=== PATIENT | female | born 1995 | race Caucasian/White ===

== ENCOUNTER → 2022-03-02 | Outpatient (CLI) | payer OTHER ==
[2022-03-02 18:05] LABS: BASO % 0.1 % (0.0-1.0); EOS # 0.1 10^3/uL (0.0-0.5); EOS % 1.5 % (0.0-3.0); HEMATOCRIT 33.9 % (36.0-47.0); HEMOGLOBIN 11.1 g/dl (12.0-15.5); LYMPH # 1.3 10^3/uL (1.5-5.0); LYMPH % 16.7 % (24.0-44.0); MEAN CORPUSCULAR HGB CONC 32.7 g/dl (32.0-36.5); MEAN CORPUSCULAR VOLUME 88.5 fl (80.0-96.0); MONO # 0.6 10^3/uL (0.0-0.8); MONO % 7.4 % (2.0-8.0); NEUTROPHILS # 5.9 10^3/uL (1.5-8.5); NEUTROPHILS % 73.8 % (36.0-66.0); PLATELET COUNT, AUTOMATED 336 10^3/uL (150-450); RED BLOOD COUNT 3.83 10^6/uL (4.00-5.40)
[2022-03-02 20:01] LABS: HIV 1&2 SCREEN CENTAUR NEGATIVE (NEGATIVE)
[2022-03-02 20:21] LABS: GC DNA AMPLIFICATION NEGATIVE (NEGATIVE)
== END ==
LOC: M PLALAB 14:51
PROVIDERS: ATTEND Advanced Practice Midwife
DX: Z34.82 Encounter for supervision of other normal pregnancy, second trimester (principal); Z36.89 Encounter for other specified antenatal screening

== ENCOUNTER → 2022-03-08 | Outpatient (REF) | payer OTHER | LOC: M PLALAB 12:56 | PROVIDERS: ATTEND Advanced Practice Midwife | DX: Z34.82 Encounter for supervision of other normal pregnancy, second trimester (principal) ==

== ENCOUNTER → 2022-03-28 | Outpatient (CLI) | payer OTHER ==
[2022-03-28 14:28] LABS: FREE T4 0.8 NG/DL (0.76-1.46); THYROID STIMULATING HORMONE 1.79 uIU/ML (0.358-3.740)
== END ==
LOC: M PLALAB 10:11
PROVIDERS: ATTEND Specialist
DX: Z34.02 Encounter for supervision of normal first pregnancy, second trimester (principal)

== ENCOUNTER → 2022-04-11 | Outpatient (CLI) | payer OTHER | LOC: M WHC 14:36 | PROVIDERS: ATTEND Advanced Practice Midwife | DX: Z34.02 Encounter for supervision of normal first pregnancy, second trimester (principal); Z3A.19 19 weeks gestation of pregnancy ==

== ENCOUNTER → 2022-05-17 | Outpatient (CLI) | payer OTHER ==
[2022-05-17 14:15] LABS: HEMATOCRIT 32.2 % (36.0-47.0); HEMOGLOBIN 10.5 g/dl (12.0-15.5); MEAN CORPUSCULAR HEMOGLOBIN 30.6 pg (27.0-33.0); MEAN CORPUSCULAR HGB CONC 32.6 g/dl (32.0-36.5); MEAN CORPUSCULAR VOLUME 93.9 fl (80.0-96.0); PLATELET COUNT, AUTOMATED 324 10^3/uL (150-450); RED BLOOD COUNT 3.43 10^6/uL (4.00-5.40); WHITE BLOOD COUNT 9.2 10^3/uL (4.0-10.0)
[2022-05-17 17:01] LABS: GC DNA AMPLIFICATION NEGATIVE (NEGATIVE)
== END ==
LOC: M PLALAB 09:49
PROVIDERS: ATTEND Obstetrics & Gynecology
DX: Z34.02 Encounter for supervision of normal first pregnancy, second trimester (principal); Z3A.25 25 weeks gestation of pregnancy

== ENCOUNTER → 2022-05-17 | Outpatient (CLI) | payer OTHER, SELFPAY | LOC: M WHC 08:51 | PROVIDERS: ATTEND Obstetrics & Gynecology | DX: Z34.02 Encounter for supervision of normal first pregnancy, second trimester (principal); Z3A.25 25 weeks gestation of pregnancy ==

== ENCOUNTER → 2022-08-06 | Outpatient (REF) | payer OTHER | LOC: M SFHCWAGY 10:03 | PROVIDERS: ATTEND Specialist | DX: Z34.03 Encounter for supervision of normal first pregnancy, third trimester (principal) | CPT/HCPCS: 87081; G0463 ==

== ENCOUNTER 2022-09-01 13:41 | Inpatient (IN) | payer OTHER ==
[~2022-09-01] VITALS: Ht 160 cm; Wt 88.9 kg
[2022-09-01] VITALS (11 sets, daily range): BP systolic 107–135; BP diastolic 55–79
[2022-09-01] MEDS ORDERED: PRENTAB9 PO (14:04)
[2022-09-01] MEDS ORDERED: HOME MED LIST COMPLETE! XX SCH (14:05)
[2022-09-01] MEDS ORDERED: LIDOCAINE 1% MDV 20ML VIAL INFIL PRN (14:30)
[2022-09-01] MEDS ORDERED: OXYTOCIN DRIP 30 UNITS in IV 1 EA IV PRN (14:30)
[2022-09-01 15:42] LABS: HEMATOCRIT 35.2 % (36.0-47.0); HEMOGLOBIN 11.6 g/dl (12.0-15.5); MEAN CORPUSCULAR HEMOGLOBIN 30.5 pg (27.0-33.0); MEAN CORPUSCULAR VOLUME 92.6 fl (80.0-96.0); PLATELET COUNT, AUTOMATED 353 10^3/uL (150-450); WHITE BLOOD COUNT 12.1 10^3/uL (4.0-10.0)
[2022-09-01] MEDS ORDERED: OXYTOCIN DRIP 30 UNITS in IV 1 EA IV SCH (19:40)
[2022-09-01] MEDS: LR 1,000 ML IV SCH (20:36)
[2022-09-02] VITALS (17 sets, daily range): BP systolic 87–139; BP diastolic 46–89
[2022-09-02] MEDS: LR 1,000 ML IV SCH (02:25)
[2022-09-02] MEDS ORDERED: LACTATED RINGER'S 1000 ML IV STA (03:38)
[2022-09-02] MEDS ORDERED: AZITHROMYCIN INJ 500 MG, VIAL MATE ADAPTER 1 EACH in NS 250 ML IV ONE (03:40)
[2022-09-02] MEDS ORDERED: ceFAZolin SOD 2 GM in IV 1 EA IV ONE (03:40)
[2022-09-02] MEDS ORDERED: LR 1,000 ML IV SCH ×2 (03:40→05:10)
[2022-09-02] MEDS ORDERED: BICITRA 30ML SOLN UDC PO ONE (03:40)
[2022-09-02] MEDS ORDERED: MORPHINE PRES-FREE INJ 10 MG/10 ML VIAL As Ordered ONE (03:45)
[2022-09-02] MEDS ORDERED: ACETAMINOPHEN 1000MG 100ML IV BAG As Ordered ONE (03:45)
[2022-09-02] MEDS ORDERED: KETOROLAC 60MG 2ML VIAL As Ordered ONE (03:45)
[2022-09-02] MEDS ORDERED: ONDANSETRON 4MG 2ML VIAL As Ordered ONE (03:45)
[2022-09-02] MEDS ORDERED: PHENYLephrine 500MCG 5ML (100MCG/ML) SYRINGE As Ordered ONE (03:59)
[2022-09-02] MEDS ORDERED: ePHEDrine SULFATE 25 MG/5 ML(5MG/ML) SYRINGE As Ordered ONE (03:59)
[2022-09-02] MEDS ORDERED: **NOTE PATIENT COMMENT** MISC XX SCH (05:10)
[2022-09-02] MEDS: SLF 3 ML SYR IV SCH ×3 (05:10→22:24)
[2022-09-02] MEDS ORDERED: oxyCODONE 5MG TAB PO PRN (05:10)
[2022-09-02] MEDS ORDERED: fentaNYL 100 MCG/2 ML INJECTION IV PRN (05:10)
[2022-09-02] MEDS ORDERED: diphenhydrAMINE 50MG/ML VIAL IV PRN (05:10)
[2022-09-02] MEDS ORDERED: NALOXONE INJ 0.4MG/1ML VIAL IV PRN ×2 (05:10)
[2022-09-02] MEDS ORDERED: ONDANSETRON 4MG 2ML VIAL IV PRN (05:10)
[2022-09-02] MEDS ORDERED: METOCLOPRAMIDE INJ 10MG/2ML VIAL IV PRN (05:10)
[2022-09-02] MEDS ORDERED: OXYTOCIN 30UNITS IN 0.9% NaCl 500ML IV BAG As Ordered ONE (05:43)
[2022-09-02] MEDS ORDERED: DOCUSATE SODIUM 100MG CAPSULE PO PRN (06:00)
[2022-09-02] MEDS ORDERED: RHOGAM 300MCG (1500IU) INJ IM SCH (06:00)
[2022-09-02] MEDS ORDERED: OXYTOCIN DRIP 30 UNITS in IV 1 EA IV SCH (06:00)
[2022-09-02] MEDS: PRENATAL VITAMINS CHEWABLE TABLET PO SCH (08:06)
[2022-09-02] MEDS: KETOROLAC 30 MG/ML 1ML VIAL IV SCH ×3 (11:14→22:24)
[2022-09-02] MEDS: SIMETHICONE 80MG CHEW TAB PO PRN (15:21)
[2022-09-02] MEDS ORDERED: IBUP80TA PO (23:14)
[2022-09-02] MEDS ORDERED: OXYC1TAB23 PO (23:14)
[2022-09-03 02:00] VITALS: BP 114/57
[2022-09-03 06:00] VITALS: BP 113/61
[2022-09-03 06:27] LABS: HEMATOCRIT 28.6 % (36.0-47.0); HEMOGLOBIN 9.2 g/dl (12.0-15.5); MEAN CORPUSCULAR HEMOGLOBIN 30.6 pg (27.0-33.0); MEAN CORPUSCULAR HGB CONC 32.2 g/dl (32.0-36.5); PLATELET COUNT, AUTOMATED 252 10^3/uL (150-450); RED BLOOD COUNT 3.01 10^6/uL (4.00-5.40); WHITE BLOOD COUNT 14.1 10^3/uL (4.0-10.0)
[2022-09-03] MEDS: IBUPROFEN 800 MG TAB PO SCH ×3 (06:33→17:58)
[2022-09-03] MEDS: SIMETHICONE 80MG CHEW TAB PO PRN ×2 (09:05→17:56)
[2022-09-03] MEDS: PRENATAL VITAMINS CHEWABLE TABLET PO SCH (09:05)
[2022-09-03 10:00] VITALS: BP 109/63
[2022-09-03 14:00] VITALS: BP 120/69
[2022-09-03 18:00] VITALS: BP 122/69
[2022-09-03] MEDS ORDERED: MOM 30ML SUSPENSION UDC PO PRN (20:20)
[2022-09-03] MEDS ORDERED: ONDANSETRON 4MG TAB PO PRN (20:20)
[2022-09-03] MEDS ORDERED: PERCOCET 5MG/325MG TAB PO PRN ×2 (20:20)
[2022-09-03 22:00] VITALS: BP 118/58
[2022-09-04] MEDS: IBUPROFEN 800 MG TAB PO SCH (01:29)
[2022-09-04 02:00] VITALS: BP 122/70
[2022-09-04 06:00] VITALS: BP 113/68
[2022-09-04] MEDS ORDERED: MEASLES,MUMPS,RUBELLA VACCINE INJ (MMR-II) SC.IMMUN ONE (09:00)
[2022-09-04] MEDS: PRENATAL VITAMINS CHEWABLE TABLET PO SCH (09:25)
[2022-09-04 10:00] VITALS: BP 117/68
== END 2022-09-04 13:20 | disposition home or self-care (01) | DRG 773 ==
LOC: M LDO 13:41 → M LDI 14:25 → M OBS 09-02 06:00
PROVIDERS: ADMIT Specialist; ATTEND Specialist
PROC: 10D00Z1 Extraction of Products of Conception, Low, Open Approach (ICD-10-PCS; principal; 2022-09-02 03:56)
DX: O64.0XX0 Obstructed labor due to incomplete rotation of fetal head, not applicable or unspecified (principal); Z3A.40 40 weeks gestation of pregnancy; O62.0 Primary inadequate contractions; O77.1 Fetal stress in labor or delivery due to drug administration; O34.13 Maternal care for benign tumor of corpus uteri, third trimester; Z37.0 Single live birth